=== PATIENT | female | born 1990 | race African-American/Black ===

== ENCOUNTER 2018-08-27 13:20 | Emergency (ER) | payer OTHER ==
--- NOTE | 2018-08-27 15:12 | ER Document Report ---
ED Medical Screen (RME) - General Chief Complaint: Vag Bleeding, +preg <12wks Stated Complaint: VAGINAL BLEEDING Time Seen by Provider: 08/27/18 15:01 Mode of Arrival: Ambulatory Information source: Patient TRAVEL OUTSIDE OF THE [place] IN LAST 30 DAYS: No - HPI Patient complains to provider of: PREG, VAB BLEEDING Notes: 08/27/18 15:09 Patient with complaints of vaginal bleeding and cramping. The patient is a G3, P1 with one prior miscarriage. No fever. Started having some bleeding that started this morning. She denies any other complaints at this time. Exam No distress, nontoxic-appearing. Minimal lower pelvic tenderness to limited triage abdominal exam. Plan CBC, CMP, quantitative hCG, urinalysis, ultrasound. Patient's blood type is B+. An initial examination was made on the patient as part of the triage process, and it was determined a more comprehensive evaluation was necessary. Initial labs were ordered and patient was transferred to another provider in the ED who assumed care and finished evaluation and plan. - Related Data Allergies/Adverse Reactions: No Known Allergies Allergy (Verified 08/06/18 10:03) Past Medical History - Social History Chew tobacco use (# tins/day): No Frequency of alcohol use: None Drug Abuse: None Renal/ Medical History: Denies: Hx Peritoneal Dialysis Physical Exam - Vital signs Vitals: Temp Pulse Resp BP Pulse Ox 98.6 F 78 16 144/75 H 100 08/27/18 13:55 08/27/18 13:55 08/27/18 13:55 08/27/18 13:55 08/27/18 13:55 Course - Vital Signs Vital signs: Temp Pulse Resp BP Pulse Ox 98.6 F 78 16 144/75 H 100 08/27/18 13:55 08/27/18 13:55 08/27/18 13:55 08/27/18 13:55 08/27/18 13:55
[2018-08-27 17:29] VITALS: BP 140/79
--- NOTE | 2018-08-27 17:31 | RADIOLOGY REPORT (SQ) ---
EXAM DESCRIPTION: U/S 1TRIMESTER/1GEST W/DOPPLER COMPLETED DATE/TIME: 08/27/2018 5:19 pm REASON FOR STUDY: PREG, BLEEDING, PELVIC PAIN COMPARISON: None. TECHNIQUE: Transabdominal static and realtime grayscale images acquired of the pelvis. Additional se lected spectral and color Doppler images recorded. All images stored on PACs. bHCG: Not available. CLINICAL DATES: 11 weeks 1 day LIMITATIONS: None. FINDINGS: FETUS: Single Living intrauterine . ULTRASOUND EGA: 10 weeks 4 days ULTRASOUND TALISHA: 03/21/2019 EFW: Not applicable less than 20 weeks. CRL: 3.63 cm FHR: 168 beats per minute. SURVEY: No visualized anomalies. AMNIOTIC FLUID: Adequate amount. PLACENTA: Not yet developed due to early gestation. SUBCHORIONIC BLEED: No. SIZE OF BLEED: Not applicable. UTERUS: 2 cm fundal fibroid. . No anomalies. CERVICAL LENGTH: 2.4 cm Closed. RIGHT ADNEXA: Normal ovary with normal vascular flow. No adnexal free fluid. No adnexal masses. LEFT ADNEXA: Normal ovary with normal vascular flow. No adnexal free fluid. No adnexal masses. FREE FLUID: None. OTHER: No other significant finding. IMPRESSION: LIVING INTRAUTERINE . EGA 10 weeks 4 days Trimester of : First - 0 to 13 weeks. TECHNICAL DOCUMENTATION: JOB ID: [id number] [place]-[id number] 2010 [email or web address]- All Rights Reserved rev-08/25 Reading location - IP/workstation name: [email or web address]
--- NOTE | 2018-08-27 17:39 | ER Document Report ---
ED General - General Chief Complaint: Vag Bleeding, +preg <12wks Stated Complaint: VAGINAL BLEEDING Time Seen by Provider: 08/27/18 15:01 Primary Care Provider: [facility] [Provider Group] - Follow up as needed Mode of Arrival: Ambulatory TRAVEL OUTSIDE OF THE [place] IN LAST 30 DAYS: No - HPI Notes: Patient is a 28-year-old female G3, P1 at 10 weeks gestational age that presents to the emergency department for chief complaint of vaginal bleeding and lower abdominal cramping. Patient states that her cramping and bleeding began today. She reports that it is a bright red vaginal bleeding that is minimal but continuous throughout the day. Her cramps are intermittent and feels like a mild menstrual cycle. Patient denies any large blood clots. She denies any lightheadedness, palpitations, fevers, nausea or vomiting. She states currently she is not having the cramping. She has not taken any medication at home for her symptoms. Patient has had a positive home test and reports being 10 weeks by dates. She has an ultrasound and her first OB evaluation in 2 days. She has a history of one and one vaginal delivery in the past. Patient does also report a history of hypertension but states she does not like to take medication so she is not on any BP meds currently. Past Medical History: Hypertension Past Surgical History: Negative Social History: Recently quit tobacco. Denies drugs and alcohol Family History: Reviewed and noncontributory for presenting illness Allergies: Reviewed, see documented allergy list. REVIEW OF SYSTEMS: CONSTITUTIONAL : No fever No chills No diaphoresis No recent illness EENT: No vision changes No congestion No sore throat CARDIOVASCULAR: No chest pain No palpitations RESPIRATORY: No shortness of breath No cough No difficulty breathing GASTROINTESTINAL: abdominal pain No nausea No vomiting No diarrhea GENITOURINARY: Vaginal bleeding No dysuria No hematuria No difficulty urinating MUSCULOSKELETAL: No back pain No leg pain No arm pain SKIN: No rashes No lesions LYMPHATIC: No swollen, enlarged glands. NEUROLOGICAL: No lightheadedness No headache No weakness No paresthesias PSYCHIATRIC: No anxiety No depression PHYSICAL EXAMINATION: Vital signs reviewed, nursing noted reviewed. GENERAL: Well-appearing, well-nourished and in no acute distress. HEAD: Atraumatic, normocephalic. EYES: Eyes appear normal, extraocular movements intact, sclera anicteric, conjunctiva are normal. ENT: nares patent, oropharynx clear without exudates. Moist mucous membranes. NECK: Normal range of motion, supple without lymphadenopathy LUNGS: Breath sounds clear to auscultation bilaterally and equal. No wheezes rales or rhonchi. HEART: Regular rate and rhythm without murmurs ABDOMEN: Soft, nontender, normoactive bowel sounds. No rebound, guarding, or rigidity. No masses appreciated. EXTREMITIES: Nontender, good range of motion, no pitting or edema. NEUROLOGICAL: No focal neurological deficits. Moves all extremities spontaneously Motor and sensory grossly intact on exam. PSYCH: Normal mood, normal affect. SKIN: Warm, Dry, normal turgor, no rashes or lesions noted on exposed skin - Related Data Allergies/Adverse Reactions: No Known Allergies Allergy (Verified 08/06/18 10:03) Past Medical History - General Information source: Patient - Social History Smoking Status: Never Smoker Chew tobacco use (# tins/day): No Frequency of alcohol use: None Drug Abuse: None Family History: Reviewed & Not Pertinent Patient has suicidal ideation: No Patient has homicidal ideation: No Renal/ Medical History: Denies: Hx Peritoneal Dialysis Physical Exam - Vital signs Vitals: Temp Pulse Resp BP Pulse Ox 98.6 F 78 16 144/75 H 100 08/27/18 13:55 08/27/18 13:55 08/27/18 13:55 08/27/18 13:55 08/27/18 13:55 Course - Re-evaluation Re-evalutation: 08/27/18 17:38 Vitals reviewed. Nursing notes reviewed. Patient is well-appearing and in no acute distress. She is currently not having any abdominal cramping. She is not tachycardic or lightheaded to suggest a large amount of blood loss. Chart review shows she is B+ and not requiring RhoGam. Patient had an ultrasound which shows a single living intrauterine gestation at 10 weeks and 4 days with no ectopic . Currently waiting on UA to rule out UTI. 08/27/18 17:40 08/27/18 19:13 The remainder of patient's blood work is unremarkable. Her anemia is chronic and at baseline. Laboratory 08/27/18 08/27/18 08/27/18 16:24 16:30 16:30 WBC 9.5 RBC 5.00 Hgb 9.8 L Hct 31.3 L MCV 63 L MCH 19.6 L MCHC 31.3 L RDW 18.5 H Plt Count 377 Seg Neutrophils % 73.6 Lymphocytes % 17.9 Monocytes % 5.1 Eosinophils % 2.6 Basophils % 0.8 Absolute Neutrophils 7.0 Absolute Lymphocytes 1.7 Absolute Monocytes 0.5 Absolute Eosinophils 0.2 Absolute Basophils 0.1 Giant Platelets PRESENT Platelet Comment ADEQUATE Polychromasia SLIGHT Hypochromasia 2+ Poikilocytosis SLIGHT Anisocytosis 2+ Microcytosis 3+ Ovalocytes SLIGHT Sodium 136.0 L Potassium 4.5 Chloride 99 Carbon Dioxide 26 Anion Gap 11 BUN 8 Creatinine 0.57 Est GFR ( Amer) > 60 Est GFR (Non-Af Amer) > 60 Glucose 78 Calcium 10.1 Total Bilirubin 0.3 Direct Bilirubin 0.3 Neonat Total Bilirubin Not Reportable Neonat Direct Bilirubin Not Reportable Neonat Indirect Bili Not Reportable AST 17 ALT 17 Alkaline Phosphatase 76 Total Protein 8.2 Albumin 4.1 Beta HCG, Quant 057043.00 H Total Beta HCG POSITIVE Urine Color YELLOW Urine Appearance SLIGHTLY-CLOUDY Urine pH 5.0 Ur Specific [place] 1.020 Urine Protein NEGATIVE Urine Glucose (UA) NEGATIVE Urine Ketones NEGATIVE Urine Blood LARGE H Urine Nitrite NEGATIVE Urine Bilirubin NEGATIVE Urine Urobilinogen NEGATIVE Ur Leukocyte Esterase LARGE H Urine WBC (Auto) 19 Urine RBC (Auto) 2 Urine Bacteria (Auto) TRACE Squamous Epi Cells Auto 4 Urine Mucus (Auto) OCC Urine Ascorbic Acid NEGATIVE Obstetrics Ultrasound 08/27/18 15:08 IMPRESSION: LIVING INTRAUTERINE . EGA 10 weeks 4 days Trimester of : First - 0 to 13 weeks. She will follow with [facility] in the next few days for close reevaluation. She has an appointment scheduled on Monday. She will return for new or worsening symptoms including increased bleeding. She is stable at discharge. - Vital Signs Vital signs: Temp Pulse Resp BP Pulse Ox 98.6 F 73 18 140/79 H 99 08/27/18 13:55 08/27/18 17:27 08/27/18 17:27 08/27/18 17:27 08/27/18 17:27 - Laboratory Result Diagrams: 08/27/18 16:30 08/27/18 16:30 Laboratory results interpreted by me: 08/27/18 08/27/18 08/27/18 16:24 16:30 16:30 Hgb 9.8 L Hct 31.3 L MCV 63 L MCH 19.6 L MCHC 31.3 L RDW 18.5 H Sodium 136.0 L Beta HCG, Quant 522220.00 H Urine Blood LARGE H Ur Leukocyte Esterase LARGE H Discharge - Discharge Clinical Impression: Acute UTI, Threatened miscarriage in early Condition: Stable Disposition: HOME, SELF-CARE Instructions: Nitrofurantoin ([facility]), Threatened Miscarriage ([facility]), Urinary Tract Infection ([facility]) Additional Instructions: Please return to the emergency department if you have any worsening, or concern of your symptoms. Please return to the emergency department if you develop chest pain, difficulty breathing, severe abdominal pain, or ongoing vomiting. Please follow-up with your primary care physician in 2-3 days and any other recommended physicians. If prescribed, take all medications as directed. If you have any questions or concerns do not hesitate to return the emergency department for evaluation. Your ultrasound today showed a single intrauterine gestation at 10 weeks and 4 days Prescriptions: Nitrofurantoin Macrocrystal [Macrodantin] 100 mg PO BID #14 capsule Referrals: [facility] [Provider Group] - Follow up as needed
[2018-08-27 17:48] LABS: ABSOLUTE BASOPHILS # (AUTO) 0.1 10^3/uL (0.0-0.2); ABSOLUTE MONOCYTES (AUTO) 0.5 10^3/uL (0.1-1.4); BASOPHILS % (AUTO) 0.8 % (0-2); MONOCYTES % (AUTO) 5.1 % (3-13); TOTAL CELLS COUNTED % (AUTO) 100 %
[2018-08-27 17:53] LABS: ABSOLUTE EOSINOPHILS # (AUTO) 0.2 10^3/uL (0.0-0.6); ABSOLUTE LYMPHOCYTES (AUTO) 1.7 10^3/uL (0.5-4.7); EOSINOPHILS % (AUTO) 2.6 % (0-6); HEMATOCRIT 31.3 % (36.0-47.0); HEMOGLOBIN 9.8 g/dL (12.0-15.5); LYMPHOCYTES % (AUTO) 17.9 % (13-45); MEAN CORPUSCULAR HEMOGLOBIN 19.6 pg (27.0-33.4); MEAN CORPUSCULAR HGB CONC 31.3 g/dL (32.0-36.0); PLATELET COUNT 377 10^3/uL (150-450); RED CELL DISTRIBUTION WIDTH 18.5 % (11.5-14.0); SEGMENTED NEUTROPHILS % (AUTO) 73.6 % (42-78); WHITE BLOOD COUNT 9.5 10^3/uL (4.0-10.5)
[2018-08-27 17:59] LABS: APPEARANCE,URINE SLIGHTLY-CLOUDY; BILIRUBIN,URINE NEGATIVE (NEGATIVE); COLOR,URINE YELLOW; GLUCOSE, URINE NEGATIVE (NEGATIVE); KETONES,URINE NEGATIVE (NEGATIVE); LEUKOCYTE ESTERASE,URINE LARGE (NEGATIVE); NITRITE,URINE NEGATIVE (NEGATIVE); PROTEIN,URINE NEGATIVE (NEGATIVE); UROBILINOGEN,URINE NEGATIVE mg/dL (<2.0)
[2018-08-27] MEDS ORDERED: NITROFURANTOIN MONOHYD/M-CRYST 100 MG CAPSULE PO ONE (18:09)
[2018-08-27 18:12] LABS: ALANINE AMINOTRANSFERASE 17 U/L (9-52); ALBUMIN 4.1 g/dL (3.5-5.0); ALKALINE PHOSPHATASE 76 U/L (38-126); ANION GAP 11 (5-19); ASPARTATE AMINO TRANSFERASE 17 U/L (14-36); BILIRUBIN,DIRECT 0.3 mg/dL (0.0-0.4); BILIRUBIN,TOTAL 0.3 mg/dL (0.2-1.3); BLOOD UREA NITROGEN 8 mg/dL (7-20); CALCIUM 10.1 mg/dL (8.4-10.2); CARBON DIOXIDE 26 mmol/L (22-30); CHLORIDE 99 mmol/L (98-107); GLUCOSE 78 mg/dL (75-110); POTASSIUM 4.5 mmol/L (3.6-5.0); TOTAL PROTEIN 8.2 g/dL (6.3-8.2)
[2018-08-27 18:18] LABS: MEAN CORPUSCULAR VOLUME 63 fl (80-97)
[2018-08-27 18:20] LABS: ANISOCYTOSIS 2+; HYPOCHROMASIA 2+; POLYCHROMASIA SLIGHT
[2018-08-27 18:22] LABS: OVALOCYTES SLIGHT; PLATELET COMMENT ADEQUATE; POIKILOCYTOSIS SLIGHT
[2018-08-27 18:23] LABS: PLATELET GIANT PRESENT
[2018-08-28 12:24] LABS: PATH REVIEW PATHOLOGIST REVIEWED
== END 2018-08-27 19:27 | disposition home or self-care (01) ==
LOC: ER 13:20
DX: O20.0 Threatened abortion (principal); O23.41 Unspecified infection of urinary tract in pregnancy, first trimester; Z3A.10 10 weeks gestation of pregnancy
CPT/HCPCS: 99284; 36415; 84702; 85025; 80053; 81001; 76801; 93976; J8499